=== PATIENT | male | born 1970 | race Caucasian/White ===

== ENCOUNTER 2016-03-18 22:14 | Emergency (ER) | payer MEDICAID ==
[2016-03-18 22:59] VITALS: TEMP 98.6; BMI 18.4
--- NOTE | 2016-03-19 02:07 | DIRPT ---
CLINICAL DATA: 45-year-old male with laceration to the right middle finger. EXAM: RIGHT FINGER(S) - 2+ VIEW COMPARISON: None. FINDINGS: There is no acute fracture or dislocation. The bones are well mineralized. There is mild soft tissue swelling of the third digit. No radiopaque foreign object identified. IMPRESSION: No acute osseous pathology. No radiopaque foreign object. Electronically Signed By: Larry Valadez M.D. On: 03/19/2016 02:05
--- NOTE | 2016-03-19 02:24 | EDPRACDOC ---
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 Denies loss of function. Bleeding controlled. - Tetanus Status Last Tetanus: No - Pain Pain Severity: Moderate Bleeding: Reports: Controlled Associated Signs & Symptoms: Reports: None ED Past Medical History - History Reviewed Yes Nurses notes reviewed and agree except as marked - Patient Medical History Psychological History: Reports: Anxiety, Bipolar Disorder. Denies: Depression Systemic History: Denies: Cancer - Social Medical History Smoking Status: Heavy tobacco smoker (5 or more cigarettes/day or daily pipe/ cigar) EDM Review of Systems - Review of Systems ROS Negative Except as Marked: Yes All systems reviewed and were negative except as marked Musculoskeletal: Other (right middle finger abrasion) - Physical Exam Constitutional: No apparent distress, Alert Oriented to: Time, Person, Place Last recorded Vital Signs: Last Vital Signs Temp 98.6 F 03/18/16 22:56 Pulse 94 03/18/16 22:56 Resp 20 03/18/16 22:56 BP 110/72 03/18/16 22:56 Pulse Ox 96 03/18/16 22:56 Oxygen Pulse Oxygen Saturation 96 O2 Device Room Air Oxygen Flow Rate Fraction of Inspired Oxygen ( FIO2) - HEENT Head: Normal Eye Exam: negative: Conjunctival Injection, Scleral Icterus Oropharynx: negative: Drooling TMJ: Normal Nose: No Symptoms Reported Neck: Normal - Respiratory/Cardiovascular Respiratory: Normal - CTA Cardiovascular: Normal - GI Auscultation: Normal Palpation: Normal Tenderness: Non tender - Musculoskeletal Back: Normal Extremities: Normal Musculoskeletal Comment: Pulses, sensation, motor fxn and FROM to right middle finger and distal to same finger. - Integumentary Skin: Other (avulsion to right middle finger) - Neurologic Mood Description: Normal Thought: Coherent Perception: Normal - Diagnostic Imaging Hand Image interpreted by: Radiologist EXAM: RIGHT FINGER(S) - 2+ VIEW COMPARISON: None. FINDINGS: There is no acute fracture or dislocation. The bones are well mineralized. There is mild soft tissue swelling of the third digit. No radiopaque foreign object identified. IMPRESSION: No acute osseous pathology. No radiopaque foreign object. Electronically Signed By: Larry Valadez M.D. On: 03/19/2016 02:05 - Additional Information Bleeding continues on avulsion. Pt refused cautery and wants to go home and keep wound wrapped and elevated until bleeding stops. Decision Time to Discharge: 02:22 - Departure Disposition: Home Condition: Stable Final Diagnosis: Finger avulsion Qualifiers: Encounter type: initial encounter Qualified Code(s): S61.209A - Unspecified open wound of unspecified finger without damage to nail, initial encounter Education/Counseling Given To: Patient Education/Counseling Given Regarding: Diagnosis, Treatment, Prognosis, Follow Up Referrals: Sergo Mancilla PA [Primary Care Provider] - One Week Prescriptions: New Oxycodone Immediate Release [Oxy-Ir] 5 mg PO Q6H PRN #7 tab PRN Reason: Pain No Action Celecoxib (anti-inflammatory) [Celebrex] 200 mg PO DAILY Fluoxetine HCl [Prozac] 10 mg PO DAILY Risperidone [Risperdal] 0.5 mg PO BID Additional Instructions: Follow up with primary care. Take tylenol or motrin for pain. Return to ED for any new or worsening symptoms.
[2016-03-19] MEDS ORDERED: DIPHTHERIA AND TETANUS (ADULT) 0.5 ML SYR IM ONE (02:27)
[2016-03-19] MEDS ORDERED: IBUPROFEN 800 MG TAB PO ONE (02:28)
[2016-03-19] MEDS ORDERED: CELLULOSE,OXIDIZED (SURGICEL) 1 PAD TOP ONE ×2 (02:47→02:55)
[2016-03-19 03:04] VITALS: BP 116/86; PULSE 86
[2016-03-19] MEDS ORDERED: OXYCODONE HCL 5 MG TABLET PO ONE (03:36)
== END 2016-03-19 04:10 | disposition home or self-care (01) ==
LOC: ED 22:14
DX: S61.209A Unspecified open wound of unspecified finger without damage to nail, initial encounter (principal); W26.0XXA Contact with knife, initial encounter; Y93.G3 Activity, cooking and baking; Z23 Encounter for immunization
CPT/HCPCS: 73140; 90471; 90714; 99283; J3490